=== PATIENT | male | born 1960 | race Caucasian/White ===

== ENCOUNTER 2016-11-08 14:15 | Inpatient (IN) | payer MEDICARE, MEDICAID ==
[~2016-11-08] VITALS: Ht 193 cm; Wt 111.3 kg
[2016-11-08] MEDS ORDERED: FLUT44HFA IH (15:24)
[2016-11-08] MEDS ORDERED: AMIT10TA6 PO (15:24)
[2016-11-08] MEDS ORDERED: DESM10SP2 NASAL (15:24)
[2016-11-08] MEDS ORDERED: ONDA4 PO (15:24)
[2016-11-08] MEDS ORDERED: LIDOP TD (15:24)
[2016-11-08] MEDS ORDERED: FLUD.1 PO (15:24)
[2016-11-08] MEDS ORDERED: OXYC40 PO (15:24)
[2016-11-08] MEDS ORDERED: BISA5TAB12 PO (15:24)
[2016-11-08] MEDS ORDERED: FAMO20 PO (15:24)
[2016-11-08] MEDS ORDERED: [UNRECOGNIZED DRUG - CODE] PO (15:24)
[2016-11-08] MEDS ORDERED: CARV6 PO (15:24)
[2016-11-08] MEDS ORDERED: [UNRECOGNIZED DRUG - CODE] TP (15:24)
[2016-11-08] MEDS ORDERED: GABA-533 PO (15:24)
[2016-11-08] MEDS ORDERED: ALPR1TAB PO (15:24)
[2016-11-08] MEDS ORDERED: TRAM50TA4 PO (15:24)
[2016-11-08] MEDS ORDERED: DICY10 PO (15:24)
[2016-11-08] MEDS ORDERED: IPRA3AMP4 NEB (15:24)
[2016-11-08] MEDS ORDERED: DULO20CA30 PO ×2 (15:24)
[2016-11-08] MEDS ORDERED: TESTC200I IM (15:24)
[2016-11-08 15:31] LABS: BASOPHILS % (AUTO) 0.5 % (0.0-2.0); EOSINOPHILS % (AUTO) 0.4 % (1.0-6.0); HEMATOCRIT 47.5 % (41-53); HEMOGLOBIN 15.3 g/dL (13.5-17.5); LYMPHOCYTES # (AUTO) 2.1 K/uL (1.0-4.8); LYMPHOCYTES % (AUTO) 22.5 % (22.0-44.0); MEAN CORPUSCULAR HEMOGLOBIN 30.1 pg (26.0-34.0); MEAN CORPUSCULAR HGB CONC 32.3 G/dL (31.0-37.0); MEAN CORPUSCULAR VOLUME 93 fL (80-100); MONOCYTES # (AUTO) 0.6 K/uL (0.1-1.0); MONOCYTES % (AUTO) 6.3 % (2.0-9.0); NEUTROPHILS # (AUTO) 6.5 K/uL (1.8-7.7); NEUTROPHILS % (AUTO) 70.3 % (40.0-70.0); PLATELET COUNT (AUTO) 197 K/uL (150-450); RED BLOOD CELL COUNT(AUTO) 5.09 MIL/uL (4.50-5.90); RED CELL DISTRIBUTION WIDTH 12.7 % (11.5-14.5); WHITE BLOOD COUNT (AUTO) 9.3 K/uL (4.5-11.0)
[2016-11-08 15:33] LABS: ANION GAP 4 mmol/L (8-16); CALCIUM, TOTAL 8.1 mg/dL (8.8-10.5); CARBON DIOXIDE 31 mmol/L (22-29); CHLORIDE 104 mmol/L (98-107); GLOMERULAR FILTR. RATE CALC > 60 mL/min (>60); POTASSIUM 3.7 mmol/L (3.5-5.1); SODIUM SERUM 139 mmol/L (136-145); UREA NITROGEN, BLOOD 14 mg/dL (7-18)
[2016-11-08 15:38] LABS: ALANINE AMINOTRANSFERASE 41 U/L (12-78); ALBUMIN 3.1 g/dL (3.4-5.0); ASPARTATE AMINOTRANSFERASE 24 U/L (15-37); BILIRUBIN,TOTAL 0.5 mg/dL (0.1-1.0); TOTAL PROTEIN, SERUM 5.9 g/dL (6.4-8.2)
[2016-11-08] MEDS ORDERED: OxyCODONE HCL 30 MG ER TABLET PO ONE (16:30)
[2016-11-08] MEDS ORDERED: OxyCODONE HCL 10 MG ER TABLET PO ONE (16:45)
[2016-11-08] MEDS ORDERED: LORazepam 2 MG TABLET PO PRN (18:45)
[2016-11-08] MEDS ORDERED: ZOLPIDEM TARTRATE 10 MG TABLET PO PRN (18:45)
[2016-11-08] MEDS ORDERED: HALOPERIDOL 5 MG TABLET PO PRN (18:45)
[2016-11-08 20:19] VITALS: BP 149/102
[2016-11-08 23:25] LABS: ABG A-A DIFF O2 26.4 mmHg (10-20.0); ABG BASE EXCESS 6.3 mmol/L (-2.0-3.0); ABG HCO3 29.3 mmol/L (22.0-26.0); ABG OXYHEMOGLOBIN 92.5 % (94.0-100.0); ABG PCO2 44 mmHg (35-45); ABG PH 7.453 (7.35-7.450); TEMPERATURE, FAHRENHEIT, BG 98.6 FAHREN (96.0-98.6)
[2016-11-08 23:26] LABS: ALLEN TEST, BLOOD GAS Positive
[2016-11-09] MEDS ORDERED: LORA2TAB2 PO (01:50)
[2016-11-09] MEDS ORDERED: DULO60CA44 PO (01:50)
[2016-11-09] MEDS ORDERED: ZOLP10 PO (01:50)
[2016-11-09] MEDS ORDERED: HALO5 PO (01:50)
[2016-11-09] MEDS ORDERED: OLAN5TAB2 PO (01:50)
[2016-11-09] MEDS ORDERED: DULoxetine HCL 60 MG CAPSULE PO SCH (09:00)
[2016-11-09] MEDS ORDERED: ALPR0.5T8 PO (15:05)
[2016-11-09] MEDS ORDERED: OLANZapine 5 MG TABLET PO SCH (21:00)
== END 2016-11-09 01:43 | DRG 885 ==
LOC: EMS 14:17 → 3EX 19:25
PROVIDERS: ADMIT Psychiatry & Neurology Psychiatry; ATTEND Psychiatry & Neurology Psychiatry
DX: F29 Unspecified psychosis not due to a substance or known physiological condition (principal); E23.0 Hypopituitarism; Q79.6 Ehlers-Danlos syndromes; K21.9 Gastro-esophageal reflux disease without esophagitis; I10 Essential (primary) hypertension; G62.9 Polyneuropathy, unspecified; G47.30 Sleep apnea, unspecified; F41.9 Anxiety disorder, unspecified; F32.9 Major depressive disorder, single episode, unspecified; Z79.899 Other long term (current) drug therapy; Z98.84 Bariatric surgery status; Z90.49 Acquired absence of other specified parts of digestive tract; Z98.890 Other specified postprocedural states
CPT/HCPCS: 82805; 87081; 99285; G0480

== ENCOUNTER 2016-11-09 02:12 | Inpatient (IN) | payer MEDICARE, OTHER ==
[2016-11-09] VITALS (7 sets, daily range): BP systolic 130–162; BP diastolic 87–104
[~2016-11-09] VITALS: Ht 193 cm; Wt 110.4 kg
[~2016-11-09 02:12] MED LIST: ALPR1TAB PO; AMIT10TA6 PO; BISA5TAB12 PO; CARV6 PO; DESM10SP2 NASAL; DICY10 PO; DULO20CA30 PO; DULO60CA44 PO; FAMO20 PO; FLUD.1 PO; FLUT44HFA IH; GABA-533 PO; HALO5 PO; IPRA3AMP4 NEB; LIDOP TD; LORA2TAB2 PO; OLAN5TAB2 PO; ONDA4 PO; OXYC40 PO; TESTC200I IM; TRAM50TA4 PO; ZOLP10 PO; [UNRECOGNIZED DRUG - CODE] PO; [UNRECOGNIZED DRUG - CODE] TP
[2016-11-09] MEDS ORDERED: HALOPERIDOL 5 MG TABLET PO PRN ×2 (04:15→20:15)
[2016-11-09] MEDS ORDERED: ZOLPIDEM TARTRATE 10 MG TABLET PO PRN ×2 (04:15→20:15)
[2016-11-09] MEDS: OxyCODONE HCL/ACETAMINOPHEN 5-325 MG TABLET PO PRN ×3 (07:48→19:47)
[2016-11-09] MEDS: DULoxetine HCL 60 MG CAPSULE PO SCH (07:48)
[2016-11-09] MEDS: LORazepam 2 MG TABLET PO PRN (09:53)
[2016-11-09] MEDS ORDERED: LORazepam 2 MG/ML VIAL IM ONE (15:00)
[2016-11-09] MEDS ORDERED: ALPR0.5T8 PO (15:05)
[2016-11-09] MEDS ORDERED: DiphenhydrAMINE HCL 50 MG/ML VIAL IM ONE (15:15)
[2016-11-09] MEDS ORDERED: HALOPERIDOL LACTATE 5 MG/ML VIAL IM ONE (15:15)
[2016-11-09] MEDS: OLANZapine 5 MG TABLET PO SCH (19:46)
[2016-11-09] MEDS: HYDROCORTISONE 10 MG TABLET PO SCH ×2 (19:47→21:00)
[2016-11-09] MEDS ORDERED: LORazepam 2 MG TABLET PO PRN (20:15)
[2016-11-09] MEDS ORDERED: FLUDROCORTISONE ACETATE 0.1 MG TABLET PO SCH (20:15)
[2016-11-09] MEDS: ALOE VERA 100% 360 ML GEL TP SCH (20:15)
[2016-11-09] MEDS: BISACODYL 5 MG EC TABLET PO SCH (20:15)
[2016-11-09] MEDS ORDERED: DULoxetine HCL 60 MG CAPSULE PO SCH (20:15)
[2016-11-09] MEDS ORDERED: HYDROCORTISONE 10 MG TABLET PO SCH (21:00)
[2016-11-09] MEDS: DESMOPRESSIN ACETATE NASAL SCH (21:00)
[2016-11-09] MEDS ORDERED: -LIDODERM PATCH NOTE- MISC SCH ×2 (21:00)
[2016-11-09] MEDS ORDERED: OLANZapine 5 MG TABLET PO SCH (21:00)
[2016-11-09] MEDS: ALBUTEROL SULFATE 2.5 MG/0.5 ML NEB SOLUTION NEB SCH (21:00)
[2016-11-09] MEDS: IPRATROPIUM BROMIDE 0.5 MG/2.5 ML NEB SOLUTION NEB SCH (21:00)
[2016-11-09] MEDS: GABAPENTIN 400 MG CAPSULE PO SCH (22:40)
[2016-11-09] MEDS: CARVEDILOL 6.25 MG TABLET PO SCH (22:40)
[2016-11-09] MEDS: DICYCLOMINE HCL 10 MG CAPSULE PO SCH (22:40)
[2016-11-09] MEDS: AMITRIPTYLINE HCL 10 MG TABLET PO SCH (22:40)
[2016-11-09] MEDS: FAMOTIDINE 20 MG TABLET PO SCH (22:41)
[2016-11-10] VITALS (7 sets, daily range): BP systolic 90–140; BP diastolic 54–95
[2016-11-10] MEDS: OxyCODONE HCL 40 MG ER TABLET PO SCH ×3 (01:05→17:22)
[2016-11-10] MEDS: ALPRAZolam 0.5 MG TABLET PO SCH ×4 (01:28→17:22)
[2016-11-10] MEDS: OxyCODONE HCL/ACETAMINOPHEN 5-325 MG TABLET PO PRN (01:31)
[2016-11-10] MEDS ORDERED: WATER FOR IRRIGATION,STERILE 1000 ML SOLUTION BOTTLE ONE (08:02)
[2016-11-10] MEDS: CARVEDILOL 6.25 MG TABLET PO SCH ×2 (08:25→21:00)
[2016-11-10] MEDS: DULoxetine HCL 60 MG CAPSULE PO SCH (08:25)
[2016-11-10] MEDS: DICYCLOMINE HCL 10 MG CAPSULE PO SCH ×2 (08:25→20:38)
[2016-11-10] MEDS: BISACODYL 5 MG EC TABLET PO SCH (08:26)
[2016-11-10] MEDS: AMITRIPTYLINE HCL 10 MG TABLET PO SCH (08:26)
[2016-11-10] MEDS: GABAPENTIN 400 MG CAPSULE PO SCH (08:26)
[2016-11-10] MEDS ORDERED: LIDOCAINE HCL 5% TRANSDERMAL PATCH TD SCH (09:00)
[2016-11-10] MEDS: IPRATROPIUM BROMIDE 0.5 MG/2.5 ML NEB SOLUTION NEB SCH ×4 (09:42→21:30)
[2016-11-10] MEDS: ALBUTEROL SULFATE 2.5 MG/0.5 ML NEB SOLUTION NEB SCH ×4 (09:43→21:30)
[2016-11-10] MEDS: FAMOTIDINE 20 MG TABLET PO SCH ×2 (11:28→20:38)
[2016-11-10] MEDS: HYDROCORTISONE 10 MG TABLET PO SCH ×3 (11:29→20:38)
[2016-11-10] MEDS: ALOE VERA 100% 360 ML GEL TP SCH (11:39)
[2016-11-10] MEDS: OLANZapine 5 MG TABLET PO SCH (20:39)
[2016-11-10] MEDS: DESMOPRESSIN ACETATE NASAL SCH (20:39)
[2016-11-11] MEDS: ALPRAZolam 0.5 MG TABLET PO SCH ×5 (00:56→23:41)
[2016-11-11] MEDS: OxyCODONE HCL 40 MG ER TABLET PO SCH ×4 (00:57→23:41)
[2016-11-11] MEDS: LIDOCAINE HCL 5% TRANSDERMAL PATCH TD SCH ×2 (01:00→20:18)
[2016-11-11 03:13] VITALS: BP 108/68
[2016-11-11 07:47] VITALS: BP 115/84
[2016-11-11] MEDS: CARVEDILOL 6.25 MG TABLET PO SCH ×2 (07:58→21:00)
[2016-11-11] MEDS: FAMOTIDINE 20 MG TABLET PO SCH ×2 (08:02→20:16)
[2016-11-11] MEDS: ONDANSETRON HCL 4 MG TABLET PO PRN (08:02)
[2016-11-11] MEDS: DICYCLOMINE HCL 10 MG CAPSULE PO SCH ×2 (08:03→20:16)
[2016-11-11] MEDS: DULoxetine HCL 60 MG CAPSULE PO SCH (08:03)
[2016-11-11] MEDS: HYDROCORTISONE 10 MG TABLET PO SCH ×3 (08:03→20:17)
[2016-11-11] MEDS: AMITRIPTYLINE HCL 10 MG TABLET PO SCH (08:04)
[2016-11-11] MEDS: GABAPENTIN 400 MG CAPSULE PO SCH (08:04)
[2016-11-11] MEDS: BISACODYL 5 MG EC TABLET PO SCH (08:04)
[2016-11-11] MEDS: ALOE VERA 100% 360 ML GEL TP SCH (08:05)
[2016-11-11] MEDS: -LIDODERM PATCH NOTE- MISC SCH ×2 (08:06)
[2016-11-11] MEDS: IPRATROPIUM BROMIDE 0.5 MG/2.5 ML NEB SOLUTION NEB SCH ×4 (09:56→21:00)
[2016-11-11] MEDS: ALBUTEROL SULFATE 2.5 MG/0.5 ML NEB SOLUTION NEB SCH ×4 (09:57→21:00)
[2016-11-11 12:14] VITALS: BP 147/72
[2016-11-11 15:40] VITALS: BP 118/73
[2016-11-11 19:53] VITALS: BP 119/75
[2016-11-11] MEDS: DESMOPRESSIN ACETATE NASAL SCH (20:16)
[2016-11-11] MEDS: OLANZapine 5 MG TABLET PO SCH (20:16)
[2016-11-11 23:57] VITALS: BP 115/73
[2016-11-12 05:24] VITALS: BP 110/78
[2016-11-12] MEDS: ALPRAZolam 0.5 MG TABLET PO SCH ×2 (06:25→18:39)
[2016-11-12 07:44] VITALS: BP 124/75
[2016-11-12] MEDS: HYDROCORTISONE 10 MG TABLET PO SCH ×3 (08:55→20:35)
[2016-11-12] MEDS: CARVEDILOL 6.25 MG TABLET PO SCH ×2 (08:56→20:56)
[2016-11-12] MEDS: GABAPENTIN 400 MG CAPSULE PO SCH (08:56)
[2016-11-12] MEDS: FAMOTIDINE 20 MG TABLET PO SCH ×2 (08:56→20:35)
[2016-11-12] MEDS: DICYCLOMINE HCL 10 MG CAPSULE PO SCH ×2 (08:56→20:35)
[2016-11-12] MEDS: BISACODYL 5 MG EC TABLET PO SCH (08:56)
[2016-11-12] MEDS: DULoxetine HCL 60 MG CAPSULE PO SCH (08:56)
[2016-11-12] MEDS: AMITRIPTYLINE HCL 10 MG TABLET PO SCH (08:56)
[2016-11-12] MEDS: OxyCODONE HCL 40 MG ER TABLET PO SCH ×2 (08:56→18:39)
[2016-11-12] MEDS: -LIDODERM PATCH NOTE- MISC SCH ×2 (09:00)
[2016-11-12] MEDS: IPRATROPIUM BROMIDE 0.5 MG/2.5 ML NEB SOLUTION NEB SCH ×4 (09:05→20:33)
[2016-11-12] MEDS: ALBUTEROL SULFATE 2.5 MG/0.5 ML NEB SOLUTION NEB SCH ×4 (09:05→20:33)
[2016-11-12] MEDS: ALOE VERA 100% 360 ML GEL TP SCH (09:13)
[2016-11-12 11:29] VITALS: BP 120/72
[2016-11-12 15:29] VITALS: BP 115/65
[2016-11-12 19:24] VITALS: BP 104/61
[2016-11-12] MEDS: OLANZapine 5 MG TABLET PO SCH (20:35)
[2016-11-12] MEDS: LIDOCAINE HCL 5% TRANSDERMAL PATCH TD SCH (20:36)
[2016-11-12] MEDS: DESMOPRESSIN ACETATE NASAL SCH (20:37)
[2016-11-12 23:26] VITALS: BP 112/60
[2016-11-13 04:42] VITALS: BP 127/84
[2016-11-13] MEDS: ALPRAZolam 0.5 MG TABLET PO SCH ×4 (04:45→16:25)
[2016-11-13 07:01] VITALS: BP 135/76
[2016-11-13] MEDS: GABAPENTIN 400 MG CAPSULE PO SCH (08:45)
[2016-11-13] MEDS: DULoxetine HCL 60 MG CAPSULE PO SCH (08:45)
[2016-11-13] MEDS: HYDROCORTISONE 10 MG TABLET PO SCH ×3 (08:45→19:56)
[2016-11-13] MEDS: DICYCLOMINE HCL 10 MG CAPSULE PO SCH ×2 (08:45→19:55)
[2016-11-13] MEDS: BISACODYL 5 MG EC TABLET PO SCH (08:45)
[2016-11-13] MEDS: OxyCODONE HCL 40 MG ER TABLET PO SCH ×3 (08:46→16:25)
[2016-11-13] MEDS: CARVEDILOL 6.25 MG TABLET PO SCH ×2 (08:46→21:00)
[2016-11-13] MEDS: LORazepam 2 MG TABLET PO PRN (08:46)
[2016-11-13] MEDS: FAMOTIDINE 20 MG TABLET PO SCH ×2 (08:46→19:56)
[2016-11-13] MEDS: AMITRIPTYLINE HCL 10 MG TABLET PO SCH (08:50)
[2016-11-13] MEDS: ALOE VERA 100% 360 ML GEL TP SCH (08:51)
[2016-11-13] MEDS: -LIDODERM PATCH NOTE- MISC SCH ×2 (09:00)
[2016-11-13] MEDS: IPRATROPIUM BROMIDE 0.5 MG/2.5 ML NEB SOLUTION NEB SCH ×4 (09:49→20:07)
[2016-11-13] MEDS: ALBUTEROL SULFATE 2.5 MG/0.5 ML NEB SOLUTION NEB SCH ×4 (09:49→20:07)
[2016-11-13 11:28] VITALS: BP 143/87
[2016-11-13 16:20] VITALS: BP 136/82
[2016-11-13 19:20] VITALS: BP 124/61
[2016-11-13] MEDS: DESMOPRESSIN ACETATE NASAL SCH (19:55)
[2016-11-13] MEDS: OLANZapine 5 MG TABLET PO SCH (19:56)
[2016-11-13] MEDS: LIDOCAINE HCL 5% TRANSDERMAL PATCH TD SCH (19:57)
[2016-11-13] MEDS: OxyCODONE HCL/ACETAMINOPHEN 5-325 MG TABLET PO PRN (21:05)
[2016-11-13 23:56] VITALS: BP 124/76
[2016-11-14] MEDS: ALPRAZolam 0.5 MG TABLET PO SCH ×5 (00:30→23:18)
[2016-11-14] MEDS: OxyCODONE HCL 40 MG ER TABLET PO SCH ×4 (00:32→23:18)
[2016-11-14] MEDS: OxyCODONE HCL/ACETAMINOPHEN 5-325 MG TABLET PO PRN (02:25)
[2016-11-14] MEDS ORDERED: WATER FOR IRRIGATION,STERILE 1000 ML SOLUTION BOTTLE ONE (02:39)
[2016-11-14 04:41] VITALS: BP 126/77
[2016-11-14 07:58] VITALS: BP 143/92
[2016-11-14] MEDS: DULoxetine HCL 60 MG CAPSULE PO SCH (08:23)
[2016-11-14] MEDS: BISACODYL 5 MG EC TABLET PO SCH (08:23)
[2016-11-14] MEDS: DICYCLOMINE HCL 10 MG CAPSULE PO SCH ×2 (08:24→20:55)
[2016-11-14] MEDS: AMITRIPTYLINE HCL 10 MG TABLET PO SCH (08:24)
[2016-11-14] MEDS: GABAPENTIN 400 MG CAPSULE PO SCH (08:24)
[2016-11-14] MEDS: HYDROCORTISONE 10 MG TABLET PO SCH ×3 (08:25→20:55)
[2016-11-14] MEDS: CARVEDILOL 6.25 MG TABLET PO SCH ×2 (08:27→20:55)
[2016-11-14] MEDS: FAMOTIDINE 20 MG TABLET PO SCH ×2 (08:33→20:54)
[2016-11-14] MEDS: ALOE VERA 100% 360 ML GEL TP SCH (08:33)
[2016-11-14] MEDS: -LIDODERM PATCH NOTE- MISC SCH ×2 (09:00)
[2016-11-14] MEDS: IPRATROPIUM BROMIDE 0.5 MG/2.5 ML NEB SOLUTION NEB SCH ×4 (09:00→20:40)
[2016-11-14] MEDS: ALBUTEROL SULFATE 2.5 MG/0.5 ML NEB SOLUTION NEB SCH ×4 (09:00→20:40)
[2016-11-14 12:00] VITALS: BP 146/83
[2016-11-14 15:45] VITALS: BP 114/81
[2016-11-14 17:36] LABS: GLUCOSE COMMENT 1 Repeated; GLUCOSE,POINT OF CARE 59 MG/DL (70-110)
[2016-11-14 19:48] VITALS: BP 131/79
[2016-11-14] MEDS: OLANZapine 5 MG TABLET PO SCH (20:54)
[2016-11-14] MEDS: LIDOCAINE HCL 5% TRANSDERMAL PATCH TD SCH (20:55)
[2016-11-14] MEDS: DESMOPRESSIN ACETATE NASAL SCH (20:55)
[2016-11-15] VITALS (7 sets, daily range): BP systolic 113–154; BP diastolic 61–98
[2016-11-15] MEDS: ALPRAZolam 0.5 MG TABLET PO SCH ×4 (05:01→23:45)
[2016-11-15] MEDS: LORazepam 2 MG TABLET PO PRN ×2 (05:01→20:49)
[2016-11-15] MEDS: FAMOTIDINE 20 MG TABLET PO SCH ×2 (08:02→20:51)
[2016-11-15] MEDS: CARVEDILOL 6.25 MG TABLET PO SCH ×2 (08:02→20:51)
[2016-11-15] MEDS: ONDANSETRON HCL 4 MG TABLET PO PRN ×2 (08:02→20:48)
[2016-11-15] MEDS: BISACODYL 5 MG EC TABLET PO SCH (08:02)
[2016-11-15] MEDS: OxyCODONE HCL 40 MG ER TABLET PO SCH ×3 (08:02→23:45)
[2016-11-15] MEDS: DULoxetine HCL 60 MG CAPSULE PO SCH (08:03)
[2016-11-15] MEDS: DICYCLOMINE HCL 10 MG CAPSULE PO SCH ×2 (08:03→20:48)
[2016-11-15] MEDS: GABAPENTIN 400 MG CAPSULE PO SCH (08:03)
[2016-11-15] MEDS: AMITRIPTYLINE HCL 10 MG TABLET PO SCH (08:05)
[2016-11-15] MEDS: HYDROCORTISONE 10 MG TABLET PO SCH ×3 (08:05→20:49)
[2016-11-15] MEDS: ALOE VERA 100% 360 ML GEL TP SCH (08:06)
[2016-11-15] MEDS: -LIDODERM PATCH NOTE- MISC SCH ×2 (08:07)
[2016-11-15] MEDS: ALBUTEROL SULFATE 2.5 MG/0.5 ML NEB SOLUTION NEB SCH ×4 (09:00→21:53)
[2016-11-15] MEDS: IPRATROPIUM BROMIDE 0.5 MG/2.5 ML NEB SOLUTION NEB SCH ×4 (09:00→21:53)
[2016-11-15] MEDS: OLANZapine 5 MG TABLET PO SCH (20:48)
[2016-11-15] MEDS: DESMOPRESSIN ACETATE NASAL SCH (20:48)
[2016-11-15] MEDS: OxyCODONE HCL/ACETAMINOPHEN 5-325 MG TABLET PO PRN (20:48)
[2016-11-15] MEDS: LIDOCAINE HCL 5% TRANSDERMAL PATCH TD SCH (20:49)
[2016-11-16] VITALS (7 sets, daily range): BP systolic 128–138; BP diastolic 72–101
[2016-11-16] MEDS: ALPRAZolam 0.5 MG TABLET PO SCH ×4 (05:48→23:01)
[2016-11-16] MEDS: ALBUTEROL SULFATE 2.5 MG/0.5 ML NEB SOLUTION NEB SCH ×4 (08:13→21:54)
[2016-11-16] MEDS: IPRATROPIUM BROMIDE 0.5 MG/2.5 ML NEB SOLUTION NEB SCH ×4 (08:13→21:55)
[2016-11-16] MEDS: -LIDODERM PATCH NOTE- MISC SCH ×2 (09:00)
[2016-11-16] MEDS: ALOE VERA 100% 360 ML GEL TP SCH (09:00)
[2016-11-16] MEDS: HYDROCORTISONE 10 MG TABLET PO SCH ×3 (09:41→20:12)
[2016-11-16] MEDS: OxyCODONE HCL 40 MG ER TABLET PO SCH ×3 (09:42→23:01)
[2016-11-16] MEDS: ONDANSETRON HCL 4 MG TABLET PO PRN (09:42)
[2016-11-16] MEDS: BISACODYL 5 MG EC TABLET PO SCH (09:42)
[2016-11-16] MEDS: FAMOTIDINE 20 MG TABLET PO SCH ×2 (09:42→20:13)
[2016-11-16] MEDS: AMITRIPTYLINE HCL 10 MG TABLET PO SCH (09:42)
[2016-11-16] MEDS: DULoxetine HCL 60 MG CAPSULE PO SCH (09:42)
[2016-11-16] MEDS: DICYCLOMINE HCL 10 MG CAPSULE PO SCH ×2 (09:42→20:12)
[2016-11-16] MEDS: LORazepam 2 MG TABLET PO PRN (09:43)
[2016-11-16] MEDS: GABAPENTIN 400 MG CAPSULE PO SCH (09:43)
[2016-11-16] MEDS: CARVEDILOL 6.25 MG TABLET PO SCH ×2 (09:43→20:13)
[2016-11-16] MEDS: OxyCODONE HCL/ACETAMINOPHEN 5-325 MG TABLET PO PRN (19:26)
[2016-11-16] MEDS: DESMOPRESSIN ACETATE NASAL SCH (20:12)
[2016-11-16] MEDS: APIXABAN 5 MG TABLET PO SCH (20:12)
[2016-11-16] MEDS: OLANZapine 5 MG TABLET PO SCH (20:13)
[2016-11-16] MEDS: LIDOCAINE HCL 5% TRANSDERMAL PATCH TD SCH (20:14)
[2016-11-17] MEDS: OxyCODONE HCL/ACETAMINOPHEN 5-325 MG TABLET PO PRN ×2 (02:34→21:20)
[2016-11-17 04:51] VITALS: BP 122/73
[2016-11-17 06:14] LABS: BASOPHILS % (AUTO) 0.3 % (0.0-2.0); EOSINOPHILS % (AUTO) 1.1 % (1.0-6.0); HEMATOCRIT 43.3 % (41-53); HEMOGLOBIN 14.2 g/dL (13.5-17.5); LYMPHOCYTES # (AUTO) 2.3 K/uL (1.0-4.8); LYMPHOCYTES % (AUTO) 24.5 % (22.0-44.0); MEAN CORPUSCULAR HEMOGLOBIN 30.5 pg (26.0-34.0); MEAN CORPUSCULAR HGB CONC 32.8 G/dL (31.0-37.0); MEAN CORPUSCULAR VOLUME 93 fL (80-100); MONOCYTES % (AUTO) 10.2 % (2.0-9.0); NEUTROPHILS # (AUTO) 6.1 K/uL (1.8-7.7); NEUTROPHILS % (AUTO) 63.9 % (40.0-70.0); PLATELET COUNT (AUTO) 186 K/uL (150-450); RED BLOOD CELL COUNT(AUTO) 4.66 MIL/uL (4.50-5.90); WHITE BLOOD COUNT (AUTO) 9.5 K/uL (4.5-11.0)
[2016-11-17] MEDS: ALPRAZolam 0.5 MG TABLET PO SCH ×4 (06:31→23:20)
[2016-11-17] MEDS: ONDANSETRON HCL 4 MG TABLET PO PRN (06:41)
[2016-11-17 06:47] LABS: ALANINE AMINOTRANSFERASE 52 U/L (12-78); ALBUMIN 2.8 g/dL (3.4-5.0); ANION GAP 4 mmol/L (8-16); ASPARTATE AMINOTRANSFERASE 24 U/L (15-37); BILIRUBIN,TOTAL 0.3 mg/dL (0.1-1.0); CARBON DIOXIDE 31 mmol/L (22-29); CHLORIDE 104 mmol/L (98-107); GLOMERULAR FILTR. RATE CALC > 60 mL/min (>60); POTASSIUM 4.1 mmol/L (3.5-5.1); SODIUM SERUM 139 mmol/L (136-145); TOTAL PROTEIN, SERUM 5.4 g/dL (6.4-8.2); UREA NITROGEN, BLOOD 13 mg/dL (7-18)
[2016-11-17 08:12] VITALS: BP 140/99
[2016-11-17] MEDS: DULoxetine HCL 60 MG CAPSULE PO SCH (08:45)
[2016-11-17] MEDS: OxyCODONE HCL 40 MG ER TABLET PO SCH ×3 (08:45→23:20)
[2016-11-17] MEDS: GABAPENTIN 400 MG CAPSULE PO SCH (08:45)
[2016-11-17] MEDS: BISACODYL 5 MG EC TABLET PO SCH (08:45)
[2016-11-17] MEDS: CARVEDILOL 6.25 MG TABLET PO SCH ×2 (08:45→20:44)
[2016-11-17] MEDS: DICYCLOMINE HCL 10 MG CAPSULE PO SCH ×2 (08:45→20:43)
[2016-11-17] MEDS: AMITRIPTYLINE HCL 10 MG TABLET PO SCH (08:45)
[2016-11-17] MEDS: APIXABAN 5 MG TABLET PO SCH ×2 (08:45→20:43)
[2016-11-17] MEDS: HYDROCORTISONE 10 MG TABLET PO SCH ×3 (08:45→20:44)
[2016-11-17] MEDS: FAMOTIDINE 20 MG TABLET PO SCH ×2 (08:45→20:44)
[2016-11-17] MEDS: -LIDODERM PATCH NOTE- MISC SCH ×2 (09:00)
[2016-11-17] MEDS: ALBUTEROL SULFATE 2.5 MG/0.5 ML NEB SOLUTION NEB SCH ×4 (09:18→22:28)
[2016-11-17] MEDS: IPRATROPIUM BROMIDE 0.5 MG/2.5 ML NEB SOLUTION NEB SCH ×4 (09:18→22:28)
[2016-11-17 11:38] VITALS: BP 133/63
[2016-11-17] MEDS: ALOE VERA 100% 360 ML GEL TP SCH (13:25)
[2016-11-17 16:24] VITALS: BP 133/81
[2016-11-17 19:30] VITALS: BP_SYST 124; BP_SYST 143; BP_DIAS 79; BP_DIAS 91
[2016-11-17] MEDS: OLANZapine 5 MG TABLET PO SCH (20:43)
[2016-11-17] MEDS: LIDOCAINE HCL 5% TRANSDERMAL PATCH TD SCH (20:44)
[2016-11-17] MEDS: DESMOPRESSIN ACETATE NASAL SCH (20:44)
[2016-11-17 23:32] VITALS: BP 132/80
[2016-11-18] MEDS: OxyCODONE HCL/ACETAMINOPHEN 5-325 MG TABLET PO PRN ×3 (03:40→20:26)
[2016-11-18 04:16] VITALS: BP 147/94
[2016-11-18] MEDS: ALPRAZolam 0.5 MG TABLET PO SCH ×3 (05:54→17:55)
[2016-11-18 07:10] VITALS: BP 144/97
[2016-11-18] MEDS: GABAPENTIN 400 MG CAPSULE PO SCH (08:23)
[2016-11-18] MEDS: CARVEDILOL 6.25 MG TABLET PO SCH ×2 (08:23→20:27)
[2016-11-18] MEDS: FAMOTIDINE 20 MG TABLET PO SCH ×2 (08:23→20:27)
[2016-11-18] MEDS: HYDROCORTISONE 10 MG TABLET PO SCH ×3 (08:23→20:25)
[2016-11-18] MEDS: BISACODYL 5 MG EC TABLET PO SCH (08:23)
[2016-11-18] MEDS: AMITRIPTYLINE HCL 10 MG TABLET PO SCH (08:23)
[2016-11-18] MEDS: OxyCODONE HCL 40 MG ER TABLET PO SCH ×2 (08:23→15:44)
[2016-11-18] MEDS: APIXABAN 5 MG TABLET PO SCH ×2 (08:23→20:24)
[2016-11-18] MEDS: DICYCLOMINE HCL 10 MG CAPSULE PO SCH ×2 (08:23→20:24)
[2016-11-18] MEDS: ALOE VERA 100% 360 ML GEL TP SCH (08:24)
[2016-11-18] MEDS: -LIDODERM PATCH NOTE- MISC SCH ×2 (08:24)
[2016-11-18] MEDS: IPRATROPIUM BROMIDE 0.5 MG/2.5 ML NEB SOLUTION NEB SCH ×4 (09:45→20:07)
[2016-11-18] MEDS: ALBUTEROL SULFATE 2.5 MG/0.5 ML NEB SOLUTION NEB SCH ×4 (09:45→20:07)
[2016-11-18 11:20] VITALS: BP 136/92
[2016-11-18] MEDS: DULoxetine HCL 60 MG CAPSULE PO SCH (12:01)
[2016-11-18 15:33] VITALS: BP 129/93
[2016-11-18 19:28] VITALS: BP 132/78
[2016-11-18] MEDS: DESMOPRESSIN ACETATE NASAL SCH (20:24)
[2016-11-18] MEDS: OLANZapine 5 MG TABLET PO SCH (20:25)
[2016-11-18] MEDS: LIDOCAINE HCL 5% TRANSDERMAL PATCH TD SCH (20:30)
[2016-11-18 23:29] VITALS: BP 151/79
[2016-11-19] MEDS: ALPRAZolam 0.5 MG TABLET PO SCH ×2 (00:35→05:56)
[2016-11-19] MEDS: OxyCODONE HCL 40 MG ER TABLET PO SCH ×4 (00:37→23:28)
[2016-11-19] MEDS: LORazepam 2 MG TABLET PO PRN (03:42)
[2016-11-19] MEDS: OxyCODONE HCL/ACETAMINOPHEN 5-325 MG TABLET PO PRN ×3 (03:44→20:38)
[2016-11-19 05:16] VITALS: BP 135/95
[2016-11-19 07:33] VITALS: BP 140/93
[2016-11-19] MEDS: HYDROCORTISONE 10 MG TABLET PO SCH ×3 (07:54→20:29)
[2016-11-19] MEDS: GABAPENTIN 400 MG CAPSULE PO SCH (07:54)
[2016-11-19] MEDS: FAMOTIDINE 20 MG TABLET PO SCH ×2 (07:54→20:30)
[2016-11-19] MEDS: ONDANSETRON HCL 4 MG TABLET PO PRN (07:54)
[2016-11-19] MEDS: CARVEDILOL 6.25 MG TABLET PO SCH ×2 (07:54→20:30)
[2016-11-19] MEDS: DICYCLOMINE HCL 10 MG CAPSULE PO SCH ×2 (07:55→20:31)
[2016-11-19] MEDS: APIXABAN 5 MG TABLET PO SCH ×2 (07:55→20:30)
[2016-11-19] MEDS: -LIDODERM PATCH NOTE- MISC SCH ×2 (07:55)
[2016-11-19] MEDS: BISACODYL 5 MG EC TABLET PO SCH (07:55)
[2016-11-19] MEDS: DULoxetine HCL 60 MG CAPSULE PO SCH (07:55)
[2016-11-19] MEDS: AMITRIPTYLINE HCL 10 MG TABLET PO SCH (07:55)
[2016-11-19] MEDS: ALOE VERA 100% 360 ML GEL TP SCH (07:56)
[2016-11-19] MEDS: IPRATROPIUM BROMIDE 0.5 MG/2.5 ML NEB SOLUTION NEB SCH ×4 (08:38→20:56)
[2016-11-19] MEDS: ALBUTEROL SULFATE 2.5 MG/0.5 ML NEB SOLUTION NEB SCH ×4 (08:38→20:56)
[2016-11-19 11:11] VITALS: BP 150/102
[2016-11-19 16:09] VITALS: BP 145/88
[2016-11-19 19:53] VITALS: BP 137/80
[2016-11-19] MEDS: OLANZapine 5 MG TABLET PO SCH (20:30)
[2016-11-19] MEDS: CALCIUM CIT/VITAMIN D3 200 MG-250 UNITS TABLET PO SCH (20:30)
[2016-11-19] MEDS: DESMOPRESSIN ACETATE NASAL SCH (20:30)
[2016-11-19] MEDS: LIDOCAINE HCL 5% TRANSDERMAL PATCH TD SCH (20:31)
[2016-11-19] MEDS: ALPRAZolam 0.5 MG TABLET PO PRN (22:57)
[2016-11-20 00:12] VITALS: BP 100/53
[2016-11-20 04:43] VITALS: BP 131/79
[2016-11-20] MEDS: GABAPENTIN 400 MG CAPSULE PO SCH (08:02)
[2016-11-20] MEDS: HYDROCORTISONE 10 MG TABLET PO SCH ×3 (08:02→22:26)
[2016-11-20] MEDS: BISACODYL 5 MG EC TABLET PO SCH (08:02)
[2016-11-20] MEDS: CALCIUM CIT/VITAMIN D3 200 MG-250 UNITS TABLET PO SCH ×2 (08:02→22:26)
[2016-11-20] MEDS: DICYCLOMINE HCL 10 MG CAPSULE PO SCH ×2 (08:03→22:25)
[2016-11-20] MEDS: OxyCODONE HCL 40 MG ER TABLET PO SCH ×2 (08:03→15:53)
[2016-11-20] MEDS: APIXABAN 5 MG TABLET PO SCH ×2 (08:03→22:27)
[2016-11-20] MEDS: DULoxetine HCL 60 MG CAPSULE PO SCH (08:03)
[2016-11-20] MEDS: FAMOTIDINE 20 MG TABLET PO SCH ×2 (08:03→22:25)
[2016-11-20] MEDS: -LIDODERM PATCH NOTE- MISC SCH ×2 (08:04)
[2016-11-20] MEDS: CARVEDILOL 6.25 MG TABLET PO SCH ×2 (08:04→22:25)
[2016-11-20] MEDS: ALOE VERA 100% 360 ML GEL TP SCH (08:05)
[2016-11-20] MEDS: AMITRIPTYLINE HCL 10 MG TABLET PO SCH (08:58)
[2016-11-20] MEDS: ALBUTEROL SULFATE 2.5 MG/0.5 ML NEB SOLUTION NEB SCH ×4 (09:30→22:02)
[2016-11-20] MEDS: IPRATROPIUM BROMIDE 0.5 MG/2.5 ML NEB SOLUTION NEB SCH ×4 (09:31→22:02)
[2016-11-20 11:26] VITALS: BP 142/91
[2016-11-20] MEDS: OxyCODONE HCL/ACETAMINOPHEN 5-325 MG TABLET PO PRN ×2 (14:21→22:25)
[2016-11-20] MEDS: ALPRAZolam 0.5 MG TABLET PO PRN (15:25)
[2016-11-20 15:36] VITALS: BP 148/85
[2016-11-20 20:18] VITALS: BP 136/93
[2016-11-20] MEDS: DESMOPRESSIN ACETATE NASAL SCH (22:25)
[2016-11-20] MEDS: LIDOCAINE HCL 5% TRANSDERMAL PATCH TD SCH (22:26)
[2016-11-20] MEDS: OLANZapine 5 MG TABLET PO SCH (22:26)
[2016-11-21] VITALS (7 sets, daily range): BP systolic 119–143; BP diastolic 75–93
[2016-11-21] MEDS: OxyCODONE HCL 40 MG ER TABLET PO SCH ×3 (00:19→16:24)
[2016-11-21] MEDS: ALPRAZolam 0.5 MG TABLET PO PRN ×2 (00:21→14:39)
[2016-11-21] MEDS: OxyCODONE HCL/ACETAMINOPHEN 5-325 MG TABLET PO PRN ×3 (04:44→19:27)
[2016-11-21] MEDS: TraMADol HCL 50 MG TABLET PO PRN (06:24)
[2016-11-21] MEDS: BISACODYL 5 MG EC TABLET PO SCH (07:59)
[2016-11-21] MEDS: CALCIUM CIT/VITAMIN D3 200 MG-250 UNITS TABLET PO SCH ×2 (07:59→19:28)
[2016-11-21] MEDS: GABAPENTIN 400 MG CAPSULE PO SCH (07:59)
[2016-11-21] MEDS: DULoxetine HCL 60 MG CAPSULE PO SCH (07:59)
[2016-11-21] MEDS: CARVEDILOL 6.25 MG TABLET PO SCH ×2 (07:59→19:28)
[2016-11-21] MEDS: FAMOTIDINE 20 MG TABLET PO SCH ×2 (08:00→19:30)
[2016-11-21] MEDS: HYDROCORTISONE 10 MG TABLET PO SCH ×3 (08:00→19:28)
[2016-11-21] MEDS: APIXABAN 5 MG TABLET PO SCH ×2 (08:00→19:28)
[2016-11-21] MEDS: AMITRIPTYLINE HCL 10 MG TABLET PO SCH (08:00)
[2016-11-21] MEDS: DICYCLOMINE HCL 10 MG CAPSULE PO SCH ×2 (08:00→19:28)
[2016-11-21] MEDS: ALOE VERA 100% 360 ML GEL TP SCH (08:01)
[2016-11-21] MEDS: IPRATROPIUM BROMIDE 0.5 MG/2.5 ML NEB SOLUTION NEB SCH ×4 (09:00→20:19)
[2016-11-21] MEDS: -LIDODERM PATCH NOTE- MISC SCH ×2 (09:00)
[2016-11-21] MEDS: ALBUTEROL SULFATE 2.5 MG/0.5 ML NEB SOLUTION NEB SCH ×4 (09:00→20:20)
[2016-11-21] MEDS: OLANZapine 5 MG TABLET PO SCH (19:28)
[2016-11-21] MEDS: DESMOPRESSIN ACETATE NASAL SCH (19:28)
[2016-11-21] MEDS: LIDOCAINE HCL 5% TRANSDERMAL PATCH TD SCH (19:30)
[2016-11-22] MEDS: OxyCODONE HCL 40 MG ER TABLET PO SCH ×4 (00:33→23:52)
[2016-11-22 04:54] VITALS: BP 141/87
[2016-11-22 06:04] LABS: BASOPHILS % (AUTO) 0.2 % (0.0-2.0); EOSINOPHILS % (AUTO) 1.7 % (1.0-6.0); HEMATOCRIT 42.9 % (41-53); HEMOGLOBIN 13.8 g/dL (13.5-17.5); LYMPHOCYTES # (AUTO) 2.6 K/uL (1.0-4.8); LYMPHOCYTES % (AUTO) 30.8 % (22.0-44.0); MEAN CORPUSCULAR HEMOGLOBIN 29.7 pg (26.0-34.0); MEAN CORPUSCULAR HGB CONC 32.2 G/dL (31.0-37.0); MEAN CORPUSCULAR VOLUME 92 fL (80-100); MONOCYTES # (AUTO) 0.7 K/uL (0.1-1.0); MONOCYTES % (AUTO) 8.5 % (2.0-9.0); NEUTROPHILS % (AUTO) 58.8 % (40.0-70.0); PLATELET COUNT (AUTO) 171 K/uL (150-450); RED BLOOD CELL COUNT(AUTO) 4.65 MIL/uL (4.50-5.90); RED CELL DISTRIBUTION WIDTH 12.9 % (11.5-14.5); WHITE BLOOD COUNT (AUTO) 8.5 K/uL (4.5-11.0)
[2016-11-22 07:10] LABS: ALANINE AMINOTRANSFERASE 44 U/L (12-78); ALBUMIN 2.7 g/dL (3.4-5.0); ANION GAP 5 mmol/L (8-16); ASPARTATE AMINOTRANSFERASE 22 U/L (15-37); BILIRUBIN,TOTAL 0.3 mg/dL (0.1-1.0); CALCIUM, TOTAL 8.1 mg/dL (8.8-10.5); CARBON DIOXIDE 32 mmol/L (22-29); CHLORIDE 104 mmol/L (98-107); CREATININE 0.97 mg/dL (0.60-1.30); GLOMERULAR FILTR. RATE CALC > 60 mL/min (>60); POTASSIUM 4.2 mmol/L (3.5-5.1); SODIUM SERUM 141 mmol/L (136-145); TOTAL PROTEIN, SERUM 5.3 g/dL (6.4-8.2); UREA NITROGEN, BLOOD 12 mg/dL (7-18)
[2016-11-22] MEDS: ALBUTEROL SULFATE 2.5 MG/0.5 ML NEB SOLUTION NEB SCH ×4 (07:24→20:48)
[2016-11-22] MEDS: IPRATROPIUM BROMIDE 0.5 MG/2.5 ML NEB SOLUTION NEB SCH ×4 (07:24→20:48)
[2016-11-22] MEDS: DULoxetine HCL 60 MG CAPSULE PO SCH ×2 (07:59→08:06)
[2016-11-22] MEDS: DICYCLOMINE HCL 10 MG CAPSULE PO SCH ×2 (07:59→20:52)
[2016-11-22] MEDS: APIXABAN 5 MG TABLET PO SCH ×2 (08:00→20:53)
[2016-11-22] MEDS: AMITRIPTYLINE HCL 10 MG TABLET PO SCH (08:00)
[2016-11-22] MEDS: CARVEDILOL 6.25 MG TABLET PO SCH ×2 (08:00→20:53)
[2016-11-22] MEDS: FAMOTIDINE 20 MG TABLET PO SCH ×2 (08:00→20:53)
[2016-11-22] MEDS: GABAPENTIN 400 MG CAPSULE PO SCH (08:00)
[2016-11-22] MEDS: CALCIUM CIT/VITAMIN D3 200 MG-250 UNITS TABLET PO SCH ×2 (08:01→20:52)
[2016-11-22] MEDS: -LIDODERM PATCH NOTE- MISC SCH ×2 (08:01)
[2016-11-22] MEDS: BISACODYL 5 MG EC TABLET PO SCH (08:01)
[2016-11-22] MEDS: HYDROCORTISONE 10 MG TABLET PO SCH ×3 (08:01→20:53)
[2016-11-22] MEDS: ALOE VERA 100% 360 ML GEL TP SCH (08:02)
[2016-11-22 09:16] VITALS: BP 143/89
[2016-11-22] MEDS: OxyCODONE HCL/ACETAMINOPHEN 5-325 MG TABLET PO PRN ×2 (10:28→18:52)
[2016-11-22 16:08] VITALS: BP 122/74
[2016-11-22 20:00] VITALS: BP 134/77
[2016-11-22] MEDS: DESMOPRESSIN ACETATE NASAL SCH (20:52)
[2016-11-22] MEDS: LIDOCAINE HCL 5% TRANSDERMAL PATCH TD SCH (20:52)
[2016-11-22] MEDS: OLANZapine 5 MG TABLET PO SCH (20:53)
[2016-11-22 23:49] VITALS: BP 128/95
[2016-11-23] MEDS: ALPRAZolam 0.5 MG TABLET PO PRN ×2 (02:01→23:28)
[2016-11-23] MEDS: OxyCODONE HCL/ACETAMINOPHEN 5-325 MG TABLET PO PRN ×3 (02:06→20:44)
[2016-11-23 04:00] VITALS: BP 108/62
[2016-11-23 07:23] VITALS: BP 137/88
[2016-11-23] MEDS: APIXABAN 5 MG TABLET PO SCH ×2 (07:51→20:44)
[2016-11-23] MEDS: ONDANSETRON HCL 4 MG TABLET PO PRN (07:51)
[2016-11-23] MEDS: LORazepam 2 MG TABLET PO PRN (07:51)
[2016-11-23] MEDS: CALCIUM CIT/VITAMIN D3 200 MG-250 UNITS TABLET PO SCH ×2 (07:51→20:44)
[2016-11-23] MEDS: HYDROCORTISONE 10 MG TABLET PO SCH ×3 (07:52→20:44)
[2016-11-23] MEDS: FAMOTIDINE 20 MG TABLET PO SCH ×2 (07:52→20:44)
[2016-11-23] MEDS: CARVEDILOL 6.25 MG TABLET PO SCH ×2 (07:52→20:47)
[2016-11-23] MEDS: OxyCODONE HCL 40 MG ER TABLET PO SCH ×3 (07:52→23:23)
[2016-11-23] MEDS: BISACODYL 5 MG EC TABLET PO SCH (07:52)
[2016-11-23] MEDS: GABAPENTIN 400 MG CAPSULE PO SCH (07:52)
[2016-11-23] MEDS: DULoxetine HCL 30 MG CAPSULE PO SCH (07:53)
[2016-11-23] MEDS: ALOE VERA 100% 360 ML GEL TP SCH (07:53)
[2016-11-23] MEDS: -LIDODERM PATCH NOTE- MISC SCH ×2 (07:59)
[2016-11-23] MEDS: AMITRIPTYLINE HCL 10 MG TABLET PO SCH (07:59)
[2016-11-23] MEDS: DICYCLOMINE HCL 10 MG CAPSULE PO SCH ×2 (08:00→20:45)
[2016-11-23] MEDS: ALBUTEROL SULFATE 2.5 MG/0.5 ML NEB SOLUTION NEB SCH ×4 (09:00→21:03)
[2016-11-23] MEDS: IPRATROPIUM BROMIDE 0.5 MG/2.5 ML NEB SOLUTION NEB SCH ×4 (09:00→21:03)
[2016-11-23] MEDS ORDERED: TESTOSTERONE CYPIONATE 200 MG/ML VIAL IM SCH (09:00)
[2016-11-23 11:20] VITALS: BP 137/64
[2016-11-23 16:09] VITALS: BP 128/80
[2016-11-23 20:18] VITALS: BP 133/86
[2016-11-23] MEDS: OLANZapine 5 MG TABLET PO SCH (20:44)
[2016-11-23] MEDS: LIDOCAINE HCL 5% TRANSDERMAL PATCH TD SCH (20:46)
[2016-11-23] MEDS: DESMOPRESSIN ACETATE NASAL SCH (20:47)
[2016-11-24] VITALS (7 sets, daily range): BP systolic 126–152; BP diastolic 71–99
[2016-11-24] MEDS: OxyCODONE HCL/ACETAMINOPHEN 5-325 MG TABLET PO PRN ×2 (06:55→20:10)
[2016-11-24] MEDS: CALCIUM CIT/VITAMIN D3 200 MG-250 UNITS TABLET PO SCH ×2 (07:41→20:08)
[2016-11-24] MEDS: CARVEDILOL 6.25 MG TABLET PO SCH ×2 (07:42→20:08)
[2016-11-24] MEDS: BISACODYL 5 MG EC TABLET PO SCH (07:42)
[2016-11-24] MEDS: HYDROCORTISONE 10 MG TABLET PO SCH ×3 (07:42→20:08)
[2016-11-24] MEDS: GABAPENTIN 400 MG CAPSULE PO SCH (07:42)
[2016-11-24] MEDS: AMITRIPTYLINE HCL 10 MG TABLET PO SCH (07:42)
[2016-11-24] MEDS: DICYCLOMINE HCL 10 MG CAPSULE PO SCH ×2 (07:42→20:08)
[2016-11-24] MEDS: DULoxetine HCL 30 MG CAPSULE PO SCH (07:43)
[2016-11-24] MEDS: ALOE VERA 100% 360 ML GEL TP SCH (07:43)
[2016-11-24] MEDS: FAMOTIDINE 20 MG TABLET PO SCH ×2 (07:43→20:08)
[2016-11-24] MEDS: APIXABAN 5 MG TABLET PO SCH ×2 (07:43→20:08)
[2016-11-24] MEDS: OxyCODONE HCL 40 MG ER TABLET PO SCH ×3 (07:54→23:01)
[2016-11-24] MEDS: IPRATROPIUM BROMIDE 0.5 MG/2.5 ML NEB SOLUTION NEB SCH ×4 (09:08→21:00)
[2016-11-24] MEDS: ALBUTEROL SULFATE 2.5 MG/0.5 ML NEB SOLUTION NEB SCH ×4 (09:08→21:00)
[2016-11-24] MEDS: -LIDODERM PATCH NOTE- MISC SCH ×2 (09:50)
[2016-11-24] MEDS: DESMOPRESSIN ACETATE NASAL SCH (20:07)
[2016-11-24] MEDS: LIDOCAINE HCL 5% TRANSDERMAL PATCH TD SCH (20:09)
[2016-11-24] MEDS: OLANZapine 5 MG TABLET PO SCH (20:10)
[2016-11-24] MEDS ORDERED: WATER FOR IRRIGATION,STERILE 1000 ML SOLUTION BOTTLE ONE (21:17)
[2016-11-25] MEDS: OxyCODONE HCL/ACETAMINOPHEN 5-325 MG TABLET PO PRN ×5 (01:33→23:55)
[2016-11-25] MEDS: ALPRAZolam 0.5 MG TABLET PO PRN ×2 (03:13→22:14)
[2016-11-25 04:44] VITALS: BP 139/79
[2016-11-25] MEDS: OxyCODONE HCL 40 MG ER TABLET PO SCH ×3 (07:53→23:29)
[2016-11-25] MEDS: FAMOTIDINE 20 MG TABLET PO SCH ×2 (07:54→20:28)
[2016-11-25] MEDS: AMITRIPTYLINE HCL 10 MG TABLET PO SCH (07:54)
[2016-11-25] MEDS: GABAPENTIN 400 MG CAPSULE PO SCH (07:54)
[2016-11-25] MEDS: HYDROCORTISONE 10 MG TABLET PO SCH ×3 (07:54→20:28)
[2016-11-25] MEDS: DICYCLOMINE HCL 10 MG CAPSULE PO SCH ×2 (07:54→20:28)
[2016-11-25] MEDS: DULoxetine HCL 30 MG CAPSULE PO SCH (07:54)
[2016-11-25] MEDS: CALCIUM CIT/VITAMIN D3 200 MG-250 UNITS TABLET PO SCH ×2 (07:54→20:28)
[2016-11-25] MEDS: APIXABAN 5 MG TABLET PO SCH ×2 (07:55→20:28)
[2016-11-25] MEDS: CARVEDILOL 6.25 MG TABLET PO SCH ×2 (07:56→20:29)
[2016-11-25] MEDS: BISACODYL 5 MG EC TABLET PO SCH (07:56)
[2016-11-25] MEDS: ALOE VERA 100% 360 ML GEL TP SCH (07:57)
[2016-11-25] MEDS: -LIDODERM PATCH NOTE- MISC SCH ×2 (07:57)
[2016-11-25 08:19] VITALS: BP 135/82
[2016-11-25] MEDS: IPRATROPIUM BROMIDE 0.5 MG/2.5 ML NEB SOLUTION NEB SCH ×4 (09:44→20:46)
[2016-11-25] MEDS: ALBUTEROL SULFATE 2.5 MG/0.5 ML NEB SOLUTION NEB SCH ×4 (09:44→20:46)
[2016-11-25 11:05] VITALS: BP 123/75
[2016-11-25 15:38] VITALS: BP 137/95
[2016-11-25 19:42] VITALS: BP 126/75
[2016-11-25] MEDS: OLANZapine 5 MG TABLET PO SCH (20:29)
[2016-11-25] MEDS: DESMOPRESSIN ACETATE NASAL SCH (20:30)
[2016-11-25] MEDS: LIDOCAINE HCL 5% TRANSDERMAL PATCH TD SCH (20:30)
[2016-11-25] MEDS: ONDANSETRON HCL 4 MG TABLET PO PRN (23:35)
[2016-11-25 23:39] VITALS: BP 117/62
[2016-11-26] MEDS: TraMADol HCL 50 MG TABLET PO PRN (03:02)
[2016-11-26 05:31] VITALS: BP 122/80
[2016-11-26 08:02] VITALS: BP 133/83
[2016-11-26] MEDS: DICYCLOMINE HCL 10 MG CAPSULE PO SCH ×2 (08:06→21:37)
[2016-11-26] MEDS: CARVEDILOL 6.25 MG TABLET PO SCH ×2 (08:07→21:38)
[2016-11-26] MEDS: BISACODYL 5 MG EC TABLET PO SCH (08:08)
[2016-11-26] MEDS: FAMOTIDINE 20 MG TABLET PO SCH ×2 (08:08→21:36)
[2016-11-26] MEDS: APIXABAN 5 MG TABLET PO SCH ×2 (08:08→21:37)
[2016-11-26] MEDS: DULoxetine HCL 30 MG CAPSULE PO SCH (08:09)
[2016-11-26] MEDS: CALCIUM CIT/VITAMIN D3 200 MG-250 UNITS TABLET PO SCH ×2 (08:09→21:37)
[2016-11-26] MEDS: AMITRIPTYLINE HCL 10 MG TABLET PO SCH (08:10)
[2016-11-26] MEDS: -LIDODERM PATCH NOTE- MISC SCH ×2 (09:00)
[2016-11-26] MEDS: IPRATROPIUM BROMIDE 0.5 MG/2.5 ML NEB SOLUTION NEB SCH ×4 (09:24→21:00)
[2016-11-26] MEDS: ALBUTEROL SULFATE 2.5 MG/0.5 ML NEB SOLUTION NEB SCH ×4 (09:24→21:00)
[2016-11-26] MEDS: GABAPENTIN 400 MG CAPSULE PO SCH (10:38)
[2016-11-26] MEDS: OxyCODONE HCL 40 MG ER TABLET PO SCH ×2 (10:38→16:41)
[2016-11-26] MEDS: HYDROCORTISONE 10 MG TABLET PO SCH ×3 (10:39→21:36)
[2016-11-26] MEDS: ALOE VERA 100% 360 ML GEL TP SCH (10:41)
[2016-11-26 11:51] VITALS: BP 123/66
[2016-11-26] MEDS: OxyCODONE HCL/ACETAMINOPHEN 5-325 MG TABLET PO PRN ×2 (12:19→19:08)
[2016-11-26 16:12] VITALS: BP 140/85
[2016-11-26 19:24] VITALS: BP 139/78
[2016-11-26] MEDS: OLANZapine 5 MG TABLET PO SCH (21:00)
[2016-11-26] MEDS: LIDOCAINE HCL 5% TRANSDERMAL PATCH TD SCH (21:32)
[2016-11-26] MEDS: DESMOPRESSIN ACETATE NASAL SCH (21:38)
[2016-11-26 23:17] VITALS: BP 122/74
[2016-11-27] MEDS: ALPRAZolam 0.5 MG TABLET PO PRN ×2 (00:34→23:34)
[2016-11-27] MEDS: OxyCODONE HCL 40 MG ER TABLET PO SCH ×4 (00:36→23:34)
[2016-11-27] MEDS: ONDANSETRON HCL 4 MG TABLET PO PRN (02:02)
[2016-11-27 04:40] VITALS: BP 115/81
[2016-11-27] MEDS: OxyCODONE HCL/ACETAMINOPHEN 5-325 MG TABLET PO PRN ×3 (06:18→20:06)
[2016-11-27 07:50] VITALS: BP 116/70
[2016-11-27] MEDS: GABAPENTIN 400 MG CAPSULE PO SCH (08:08)
[2016-11-27] MEDS: CALCIUM CIT/VITAMIN D3 200 MG-250 UNITS TABLET PO SCH ×2 (08:08→20:07)
[2016-11-27] MEDS: DICYCLOMINE HCL 10 MG CAPSULE PO SCH ×2 (08:08→20:07)
[2016-11-27] MEDS: APIXABAN 5 MG TABLET PO SCH ×2 (08:08→20:08)
[2016-11-27] MEDS: DULoxetine HCL 30 MG CAPSULE PO SCH (08:08)
[2016-11-27] MEDS: AMITRIPTYLINE HCL 10 MG TABLET PO SCH (08:08)
[2016-11-27] MEDS: HYDROCORTISONE 10 MG TABLET PO SCH ×3 (08:09→20:09)
[2016-11-27] MEDS: CARVEDILOL 6.25 MG TABLET PO SCH ×2 (08:09→20:06)
[2016-11-27] MEDS: FAMOTIDINE 20 MG TABLET PO SCH ×2 (08:09→20:06)
[2016-11-27] MEDS: BISACODYL 5 MG EC TABLET PO SCH (08:09)
[2016-11-27] MEDS: -LIDODERM PATCH NOTE- MISC SCH ×2 (08:09)
[2016-11-27] MEDS: ALOE VERA 100% 360 ML GEL TP SCH (08:09)
[2016-11-27] MEDS: ALBUTEROL SULFATE 2.5 MG/0.5 ML NEB SOLUTION NEB SCH ×4 (08:48→21:29)
[2016-11-27] MEDS: IPRATROPIUM BROMIDE 0.5 MG/2.5 ML NEB SOLUTION NEB SCH ×4 (08:48→21:28)
[2016-11-27 12:06] VITALS: BP 127/71
[2016-11-27 15:51] VITALS: BP 126/83
[2016-11-27] MEDS ORDERED: HYDROGEN PEROXIDE 473 ML SOLUTION TP PRN (19:15)
[2016-11-27 19:28] VITALS: BP 130/78
[2016-11-27] MEDS: OLANZapine 5 MG TABLET PO SCH ×2 (20:07→20:12)
[2016-11-27] MEDS: DESMOPRESSIN ACETATE NASAL SCH (20:07)
[2016-11-27] MEDS: LIDOCAINE HCL 5% TRANSDERMAL PATCH TD SCH (20:08)
[2016-11-27 23:25] VITALS: BP 139/77
[2016-11-28] MEDS: LORazepam 2 MG TABLET PO PRN (03:42)
[2016-11-28 04:10] VITALS: BP 105/59
[2016-11-28 07:29] VITALS: BP 137/89
[2016-11-28] MEDS: FAMOTIDINE 20 MG TABLET PO SCH ×2 (07:57→20:32)
[2016-11-28] MEDS: APIXABAN 5 MG TABLET PO SCH ×2 (07:58→20:33)
[2016-11-28] MEDS: DICYCLOMINE HCL 10 MG CAPSULE PO SCH ×2 (07:58→20:33)
[2016-11-28] MEDS: CARVEDILOL 6.25 MG TABLET PO SCH ×2 (07:58→20:32)
[2016-11-28] MEDS: AMITRIPTYLINE HCL 10 MG TABLET PO SCH (07:58)
[2016-11-28] MEDS: CALCIUM CIT/VITAMIN D3 200 MG-250 UNITS TABLET PO SCH ×2 (07:58→20:33)
[2016-11-28] MEDS: OxyCODONE HCL/ACETAMINOPHEN 5-325 MG TABLET PO PRN ×3 (07:58→20:32)
[2016-11-28] MEDS: GABAPENTIN 400 MG CAPSULE PO SCH (07:59)
[2016-11-28] MEDS: DULoxetine HCL 30 MG CAPSULE PO SCH (07:59)
[2016-11-28] MEDS: HYDROCORTISONE 10 MG TABLET PO SCH ×3 (07:59→20:33)
[2016-11-28] MEDS: BISACODYL 5 MG EC TABLET PO SCH (07:59)
[2016-11-28] MEDS: OxyCODONE HCL 40 MG ER TABLET PO SCH ×3 (08:00→23:27)
[2016-11-28] MEDS: ALOE VERA 100% 360 ML GEL TP SCH (08:01)
[2016-11-28] MEDS: ALBUTEROL SULFATE 2.5 MG/0.5 ML NEB SOLUTION NEB SCH ×4 (08:15→20:25)
[2016-11-28] MEDS: IPRATROPIUM BROMIDE 0.5 MG/2.5 ML NEB SOLUTION NEB SCH ×4 (08:15→20:25)
[2016-11-28] MEDS: -LIDODERM PATCH NOTE- MISC SCH ×2 (09:52)
[2016-11-28 11:21] VITALS: BP 131/80
[2016-11-28 15:04] VITALS: BP 146/88
[2016-11-28 19:20] VITALS: BP 136/81
[2016-11-28] MEDS: DESMOPRESSIN ACETATE NASAL SCH (20:33)
[2016-11-28] MEDS: LIDOCAINE HCL 5% TRANSDERMAL PATCH TD SCH (20:34)
[2016-11-28] MEDS: OLANZapine 5 MG TABLET PO SCH (20:39)
[2016-11-28 23:28] VITALS: BP 142/87
[2016-11-28] MEDS: ALPRAZolam 0.5 MG TABLET PO PRN (23:28)
[2016-11-29] MEDS: LORazepam 2 MG TABLET PO PRN (01:33)
[2016-11-29 04:44] VITALS: BP 128/84
[2016-11-29 07:25] VITALS: BP 134/98
[2016-11-29] MEDS: IPRATROPIUM BROMIDE 0.5 MG/2.5 ML NEB SOLUTION NEB SCH ×4 (08:09→21:00)
[2016-11-29] MEDS: ALBUTEROL SULFATE 2.5 MG/0.5 ML NEB SOLUTION NEB SCH ×4 (08:09→21:00)
[2016-11-29] MEDS: FAMOTIDINE 20 MG TABLET PO SCH ×2 (08:22→20:37)
[2016-11-29] MEDS: CARVEDILOL 6.25 MG TABLET PO SCH ×2 (08:22→20:36)
[2016-11-29] MEDS: OxyCODONE HCL 40 MG ER TABLET PO SCH ×2 (08:23→16:33)
[2016-11-29] MEDS: CALCIUM CIT/VITAMIN D3 200 MG-250 UNITS TABLET PO SCH ×2 (08:23→20:36)
[2016-11-29] MEDS: HYDROCORTISONE 10 MG TABLET PO SCH ×3 (08:23→20:37)
[2016-11-29] MEDS: DULoxetine HCL 30 MG CAPSULE PO SCH (08:24)
[2016-11-29] MEDS: DICYCLOMINE HCL 10 MG CAPSULE PO SCH ×2 (08:24→20:36)
[2016-11-29] MEDS: GABAPENTIN 400 MG CAPSULE PO SCH (08:24)
[2016-11-29] MEDS: BISACODYL 5 MG EC TABLET PO SCH (08:24)
[2016-11-29] MEDS: AMITRIPTYLINE HCL 10 MG TABLET PO SCH (08:24)
[2016-11-29] MEDS: APIXABAN 5 MG TABLET PO SCH ×2 (08:24→20:37)
[2016-11-29] MEDS: ALOE VERA 100% 360 ML GEL TP SCH (08:25)
[2016-11-29] MEDS: -LIDODERM PATCH NOTE- MISC SCH ×2 (09:00)
[2016-11-29] MEDS: ONDANSETRON HCL 4 MG TABLET PO PRN ×2 (10:49→18:43)
[2016-11-29] MEDS: OxyCODONE HCL/ACETAMINOPHEN 5-325 MG TABLET PO PRN ×3 (10:49→20:53)
[2016-11-29 11:07] VITALS: BP 144/93
[2016-11-29 15:14] VITALS: BP 126/72
[2016-11-29 19:42] VITALS: BP 123/80
[2016-11-29] MEDS: OLANZapine 5 MG TABLET PO SCH (20:37)
[2016-11-29] MEDS: DESMOPRESSIN ACETATE NASAL SCH (20:38)
[2016-11-29] MEDS: LIDOCAINE HCL 5% TRANSDERMAL PATCH TD SCH (20:41)
[2016-11-29] MEDS ORDERED: SODIUM CHLORIDE 0.9% IRRIG BTL 1,000 ML IRRIG ONE (22:07)
[2016-11-29 23:21] VITALS: BP 127/85
[2016-11-30] MEDS: ALPRAZolam 0.5 MG TABLET PO PRN (00:07)
[2016-11-30] MEDS: OxyCODONE HCL 40 MG ER TABLET PO SCH ×4 (00:07→23:43)
[2016-11-30 04:51] VITALS: BP 115/66
[2016-11-30 07:27] VITALS: BP 136/95
[2016-11-30] MEDS: CARVEDILOL 6.25 MG TABLET PO SCH ×2 (08:17→20:32)
[2016-11-30] MEDS: OxyCODONE HCL/ACETAMINOPHEN 5-325 MG TABLET PO PRN ×3 (08:17→20:44)
[2016-11-30] MEDS: CALCIUM CIT/VITAMIN D3 200 MG-250 UNITS TABLET PO SCH ×2 (08:17→20:32)
[2016-11-30] MEDS: FAMOTIDINE 20 MG TABLET PO SCH ×2 (08:17→20:31)
[2016-11-30] MEDS: HYDROCORTISONE 10 MG TABLET PO SCH ×3 (08:18→20:32)
[2016-11-30] MEDS: BISACODYL 5 MG EC TABLET PO SCH (08:18)
[2016-11-30] MEDS: GABAPENTIN 400 MG CAPSULE PO SCH (08:19)
[2016-11-30] MEDS: DICYCLOMINE HCL 10 MG CAPSULE PO SCH ×2 (08:19→20:32)
[2016-11-30] MEDS: AMITRIPTYLINE HCL 10 MG TABLET PO SCH (08:19)
[2016-11-30] MEDS: APIXABAN 5 MG TABLET PO SCH ×2 (08:19→20:31)
[2016-11-30] MEDS: DULoxetine HCL 30 MG CAPSULE PO SCH (08:19)
[2016-11-30] MEDS: ALOE VERA 100% 360 ML GEL TP SCH (08:20)
[2016-11-30] MEDS: -LIDODERM PATCH NOTE- MISC SCH ×2 (08:25)
[2016-11-30] MEDS: IPRATROPIUM BROMIDE 0.5 MG/2.5 ML NEB SOLUTION NEB SCH ×4 (09:00→21:00)
[2016-11-30] MEDS: ALBUTEROL SULFATE 2.5 MG/0.5 ML NEB SOLUTION NEB SCH ×4 (09:00→21:00)
[2016-11-30 11:23] VITALS: BP 127/79
[2016-11-30 15:59] VITALS: BP 129/95
[2016-11-30] MEDS ORDERED: AMIT10TA6 PO (17:10)
[2016-11-30] MEDS ORDERED: APIX5TAB PO (17:10)
[2016-11-30] MEDS ORDERED: BISA5TAB12 PO (17:11)
[2016-11-30 19:58] VITALS: BP 126/84
[2016-11-30] MEDS: DESMOPRESSIN ACETATE NASAL SCH (20:31)
[2016-11-30] MEDS: LIDOCAINE HCL 5% TRANSDERMAL PATCH TD SCH (20:31)
[2016-11-30] MEDS: OLANZapine 5 MG TABLET PO SCH (20:43)
[2016-11-30 23:36] VITALS: BP 133/75
[2016-12-01] MEDS: ALPRAZolam 0.5 MG TABLET PO PRN (02:08)
[2016-12-01] MEDS: OxyCODONE HCL/ACETAMINOPHEN 5-325 MG TABLET PO PRN ×2 (02:45→11:20)
[2016-12-01] MEDS ORDERED: CALC-1135 PO (03:02)
[2016-12-01] MEDS ORDERED: APIX5TAB PO (03:02)
[2016-12-01] MEDS ORDERED: COMBISP IH (03:03)
[2016-12-01] MEDS ORDERED: ALPR0.5T8 PO (03:04)
[2016-12-01 04:00] VITALS: BP 136/82
[2016-12-01 07:47] VITALS: BP 128/82
[2016-12-01] MEDS: HYDROCORTISONE 10 MG TABLET PO SCH ×3 (08:00→20:39)
[2016-12-01] MEDS: CARVEDILOL 6.25 MG TABLET PO SCH ×2 (08:01→20:39)
[2016-12-01] MEDS: OxyCODONE HCL 40 MG ER TABLET PO SCH ×2 (08:01→16:39)
[2016-12-01] MEDS: GABAPENTIN 400 MG CAPSULE PO SCH (08:01)
[2016-12-01] MEDS: FAMOTIDINE 20 MG TABLET PO SCH ×2 (08:01→20:40)
[2016-12-01] MEDS: DULoxetine HCL 30 MG CAPSULE PO SCH (08:02)
[2016-12-01] MEDS: CALCIUM CIT/VITAMIN D3 200 MG-250 UNITS TABLET PO SCH ×2 (08:02→20:39)
[2016-12-01] MEDS: AMITRIPTYLINE HCL 10 MG TABLET PO SCH (08:02)
[2016-12-01] MEDS: DICYCLOMINE HCL 10 MG CAPSULE PO SCH ×2 (08:02→20:39)
[2016-12-01] MEDS: APIXABAN 5 MG TABLET PO SCH ×2 (08:03→20:40)
[2016-12-01] MEDS: BISACODYL 5 MG EC TABLET PO SCH (08:03)
[2016-12-01] MEDS: ALOE VERA 100% 360 ML GEL TP SCH (08:04)
[2016-12-01] MEDS: ALBUTEROL SULFATE 2.5 MG/0.5 ML NEB SOLUTION NEB SCH ×4 (09:00→21:00)
[2016-12-01] MEDS: IPRATROPIUM BROMIDE 0.5 MG/2.5 ML NEB SOLUTION NEB SCH ×4 (09:00→21:00)
[2016-12-01] MEDS: -LIDODERM PATCH NOTE- MISC SCH ×2 (09:00)
[2016-12-01 11:19] VITALS: BP 141/93
[2016-12-01 15:39] VITALS: BP 150/89
[2016-12-01 20:14] VITALS: BP 124/75
[2016-12-01] MEDS: DESMOPRESSIN ACETATE NASAL SCH (20:39)
[2016-12-01] MEDS: OLANZapine 5 MG TABLET PO SCH (20:40)
[2016-12-01] MEDS: LIDOCAINE HCL 5% TRANSDERMAL PATCH TD SCH (20:41)
[2016-12-01] MEDS ORDERED: WATER FOR IRRIGATION,STERILE 1000 ML SOLUTION BOTTLE ONE (21:18)
[2016-12-02 00:06] VITALS: BP 131/93
[2016-12-02] MEDS: OxyCODONE HCL 40 MG ER TABLET PO SCH ×2 (00:33→08:11)
[2016-12-02] MEDS: ALPRAZolam 0.5 MG TABLET PO PRN (00:35)
[2016-12-02] MEDS: LORazepam 2 MG TABLET PO PRN (02:15)
[2016-12-02 05:50] VITALS: BP 121/76
[2016-12-02] MEDS: ALBUTEROL SULFATE 2.5 MG/0.5 ML NEB SOLUTION NEB SCH ×2 (07:44→13:00)
[2016-12-02] MEDS: IPRATROPIUM BROMIDE 0.5 MG/2.5 ML NEB SOLUTION NEB SCH ×2 (07:45→13:00)
[2016-12-02 08:10] VITALS: BP 130/91
[2016-12-02] MEDS: CALCIUM CIT/VITAMIN D3 200 MG-250 UNITS TABLET PO SCH (08:10)
[2016-12-02] MEDS: HYDROCORTISONE 10 MG TABLET PO SCH (08:10)
[2016-12-02] MEDS: APIXABAN 5 MG TABLET PO SCH (08:10)
[2016-12-02] MEDS: DICYCLOMINE HCL 10 MG CAPSULE PO SCH (08:10)
[2016-12-02] MEDS: GABAPENTIN 400 MG CAPSULE PO SCH (08:11)
[2016-12-02] MEDS: BISACODYL 5 MG EC TABLET PO SCH (08:11)
[2016-12-02] MEDS: AMITRIPTYLINE HCL 10 MG TABLET PO SCH (08:11)
[2016-12-02] MEDS: DULoxetine HCL 30 MG CAPSULE PO SCH (08:11)
[2016-12-02] MEDS: FAMOTIDINE 20 MG TABLET PO SCH (08:11)
[2016-12-02] MEDS: -LIDODERM PATCH NOTE- MISC SCH ×2 (08:15)
[2016-12-02] MEDS: CARVEDILOL 6.25 MG TABLET PO SCH (08:15)
[2016-12-02] MEDS: ALOE VERA 100% 360 ML GEL TP SCH (08:15)
[2016-12-02 11:25] VITALS: BP 127/85
== END 2016-12-02 15:00 | disposition home or self-care (01) | DRG 885 ==
LOC: 6N 02:44
PROVIDERS: ADMIT Internal Medicine; ATTEND Internal Medicine
DX: F29 Unspecified psychosis not due to a substance or known physiological condition (principal); Q79.6 Ehlers-Danlos syndromes; J96.11 Chronic respiratory failure with hypoxia; E27.1 Primary adrenocortical insufficiency; F22 Delusional disorders; I10 Essential (primary) hypertension; G47.30 Sleep apnea, unspecified; E03.9 Hypothyroidism, unspecified; K21.9 Gastro-esophageal reflux disease without esophagitis; R10.9 Unspecified abdominal pain; G62.9 Polyneuropathy, unspecified; F41.9 Anxiety disorder, unspecified; F32.9 Major depressive disorder, single episode, unspecified; K58.9 Irritable bowel syndrome, unspecified; Z59.0 Homelessness; Z93.0 Tracheostomy status; Z98.84 Bariatric surgery status; Z90.49 Acquired absence of other specified parts of digestive tract; Z79.899 Other long term (current) drug therapy
CPT/HCPCS: 82962; 87081; 93005; 94640; 97110; 97161; J1071; Q0162